=== PATIENT | male | born 1970 | race Caucasian/White ===

== ENCOUNTER 2021-04-21 07:01 | Emergency (ER) | payer BC ==
[~2021-04-21] VITALS: Ht 177.8 cm; Wt 99.8 kg
[2021-04-21 08:10] LABS: HEMOGLOBIN 15.6 gm/dl (14.0-17.5); RED BLOOD COUNT 5.45 M/UL (4.20-5.50); WHITE BLOOD COUNT 6.1 K/UL (4.5-11.0)
== END 2021-04-21 11:50 | disposition home or self-care (01) ==
LOC: ER1 07:01
PROVIDERS: Student in an Organized Health Care Education/Training Program
DX: U07.1 COVID-19 (principal); A59.9 Trichomoniasis, unspecified; B34.9 Viral infection, unspecified; E86.0 Dehydration; N17.9 Acute kidney failure, unspecified; Z23 Encounter for immunization
CPT/HCPCS: 71045; 80053; 85025; 96374; 96375; 99283; J0780; J1200; J1885; J7030; M0243